=== PATIENT | female | born 1990 | race Caucasian/White ===

== ENCOUNTER 2016-07-09 08:03 | Inpatient (IN) | payer SELFPAY ==
[~2016-07-09] VITALS: Ht 170.2 cm; Wt 89.8 kg
[2016-07-09] VITALS (7 sets, daily range): BP systolic 109–138; BP diastolic 66–81; PULSE 72–98; RESP 12–20; O2SAT 94–98
--- NOTE | 2016-07-09 08:13 | ED.REPORT ---
HPI-General Illness Date of Service Jul 09, 2016 ED Provider: The patient is a 25 year old female with history of self cutting, anxiety, PTSD , former IV drug abuse, who was brought to the emergency department by her family member. The patient states she tried to commit suicide 2 days ago by injecting 12 grams of heroin. Over the last 24 hours she has developed upper and lower extremity pain/numbness, sores all over her entire body, numbness in her legs and feet, inability to move her hips or legs secondary to pain, and decreased appetite. The patient has been picking at the sores. She is not feeling suicidal at this time. She has never experienced similar symptoms after using heroin. Nursing Notes Stated Complaint: CANT FEEL LEGS Chief Complaint: General Complaint Nursing Notes Reviewed: Yes Allergies: Coded Allergies: No Known Allergies (Verified Allergy, Severe, 10/31/06) No Active Prescriptions or Reported Meds General Time Seen by MD: 08:13 Chief Complaint Multip medical complaints Hx Obtained From: Patient, Other family... Arrived By: Wheelchair Sudden in Onset?: Yes Onset Occurred: 1 day ago Symptom Duration: Since onset Location: : Arm left: Arm right: Back: Face: Hip left: Hip right: Leg left: Leg right Quality: Painful Severity: Current: Moderate Severity: Maximum: Severe Recent Healthcare: No recent doctor visit, No recent hospitalization Similar Sx Previous: No Past Medical History Past Medical History PTSD Anxiety Self cutting Hx of IV drug abuse Fibromyalgia Family History Noncontributory Social History Uses heroin Other Social History: Good social support, Local resident Ambulatory Status Independent Review of Systems Full Review of Systems GI: Reports: Anorexia Musculoskeletal: Reports: Extremity pain Skin: Reports Rash Neurologic: Reports: Focal weakness, Numbness, Problem walking Psychiatric: Denies: Suicidal ideation Complete sys rev & neg: except as marked. Physical Exam Vital Signs Vital Signs Date Time Temp Pulse Resp B/P Pulse Ox O2 Delivery O2 Flow Rate FiO2 07/09/16 09:57 77 20 122/80 98 Room Air 07/09/16 09:17 88 12 115/66 97 Room Air 07/09/16 08:07 37.2 98 20 138/81 96 Initial VS: Reviewed, Vital signs normal Head / Eyes: Normocephalic, PERRL ENT: Mucous membranes moist, Conjunctiva normal Neck: Supple, Non-tender, Full range of motion Respiratory: Breath sounds normal, Clear to auscultation, No respiratory distress Cardiovascular: Regular rate & rhythm, Heart sounds normal, Intact distal pulses Abdomen / GI: Soft, Non-tender, No guarding, No rebound, No distention General/Constitutional: Awake, Alert Distress / Hydration: Positive: Distress moderate Appearance / Presentation: Positive: Uncomfortable Lower Extremity / Pelvis / MS: Neurologic intact, Vascular intact Limited range of motion of knees and hips due to pain. Ankle / Foot: Neurologic intact, Vascular intact Intact sensory and motor function in her toes. Skin: Dry Rash / Lesion Notes: Multiple superficial excoriated ulcerations from her head to her feet (face,neck, chest, back, abdomen, upper and lower extremities). The sores are anywhere from 1 cm to 4 cm in size. Some with superimposed signs of infection. There is no fluctuance or induration. Multiple tattoos. Neurologic: Oriented X3, Speech NL Intact sensory and motor function in her toes. Interpretation & Diagnostics Lab Results Interpretation Result Diagram: 07/09/16 0833 07/09/16 0833 Test 07/09/16 08:33 07/09/16 09:50 White Blood Count 10.5th/mm3 (3.8-10.1) Red Blood Count 3.96mil/mm3 (3.90-5.20) Hemoglobin 12.5g/dL (12.0-15.6) Hematocrit 36.7% (35.0-46.0) Mean Corpuscular Volume 92.7fL (81-100) Mean Corpuscular Hemoglobin 31.6pg (27.0-35.0) Mean Corpuscular Hemoglobin Concent 34.1% (32.0-37.0) Red Cell Distribution Width 11.8% (12.3-15.4) Platelet Count 244bil/L (150-400) Neutrophils (%) (Auto) 83.4% (40-74) Lymphocytes (%) (Auto) 7.7% (14-46) Monocytes (%) (Auto) 7.4% (4-12) Eosinophils (%) (Auto) 0.8% (0-5) Basophils (%) (Auto) 0.3% (0-3) Erythrocyte Sedimentation Rate 57mm/hr (0-32) Sodium Level 138mEq/L (134-144) Potassium Level 3.5mEq/L (3.5-5.2) Chloride Level 97mEq/L (97-108) Carbon Dioxide Level 24mmol/L (18-29) Blood Urea Nitrogen 6mg/dL (6-20) Creatinine 0.70mg/dL (0.57-1.00) Estimat Glomerular Filtration Rate 145mL/min (>59) Glucose Level 98mg/dL (60-99) Lactic Acid Level 2.6mmol/L (0.4-2.0) Calcium Level 9.2mg/dL (8.5-10.1) Magnesium Level 2.0mg/dL (1.6-2.6) Total Bilirubin 0.6mg/dL (0.0-1.2) Aspartate Amino Transf (AST/SGOT) 65U/L (0-50) Alanine Aminotransferase (ALT/SGPT) 36U/L (0-32) Alkaline Phosphatase 69U/L (25-150) Total Creatine Kinase 868U/L (21-215) Troponin T 0.010ug/L (0.0-0.011) C-Reactive Protein 11.7mg/dL (0.0-0.5) Total Protein 8.3g/dL (6.4-8.4) Albumin 4.0g/dL (3.4-5.0) Procalcitonin 0.13ng/mL (0.00-0.08) Urine Color Straw (YELLOW) Urine Appearance Clear (CLEAR,HAZY) Urine pH 8.0 (5.0-8.0) Urine Specific [place] 1.005 (1.003-1.035) Urine Protein Negativemg/dL (NEG,TRACE) Urine Glucose (UA) Negativemg/dL (NEGATIVE) Urine Ketones Negativemg/dL (NEGATIVE) Urine Occult Blood Large (NEGATIVE) Urine Nitrite Negative (NEGATIVE) Urine Bilirubin Negative (NEGATIVE) Urine Urobilinogen Normalmg/dL (NORMAL) Urine Leukocyte Esterase Negative (NEGATIVE) Urine RBC 0-2/hpf (0-2) Urine WBC 0-5/hpf (0-5) Urine Epithelial Cells Few/hpf (NONE-MOD) Urine Crystals None seen (NONE SEEN) Urine Bacteria None/hpf (NONE-FEW) Urine Hyaline Casts None/lpf (NONE) Urine Granular Casts None seen (NONE SEEN) Urine Waxy Casts None seen (NONE SEEN) Urine Red Blood Cell Casts None seen (NONE SEEN) Urine White Blood Cell Casts None seen (NONE SEEN) Urine Mucus None seen (None Seen) Urine Trichomonas None seen (NONE SEEN) Urine Yeast None (NONE SEEN) Urinalysis Comment None Urine Culture Reflexed Not indicated ECG Interpretation Time: 08:38 Interpreted by: ED physician Normal ECG Interpretation: Normal ECG w/ rate of... (88), Normal rate, Normal sinus rhythm, No acute ischemic changes, Normal QRS, Normal axis, Normal intervals, Adequate tracing X-Ray Chest Interpretation Chest Xray Interpretation: IMPRESSION: No acute cardiopulmonary disease process. Dictated by: Radha Shafer MD, PhD on 07/09/2016 at 9:07 View: Portable, 1 view Interpretation / Wet Read by: Interpret - Radiologist Re-Eval/Medical Decision Med Decision/Clinical Course Concern for endocarditis due to IV drug abuse elevated sedimentation rate, lactic acid, CRP. Patient has obvious superficial impetigo. 3 blood cultures obtained, Rocephin and IV vancomycin ordered. It should be noted that after starting IV vancomycin, patient developed a numb feeling in her chest. This did not seem to correlate with any ectopy on the monitor, her EKG was unchanged. Overall it did not seem consistent with ischemic heart disease or acute coronary syndrome. Source of Hx: Old records, Family Time of Eval: 08:30 Re-Evaluation/Progress Note: Her mother reports that the patient was doing a drug called "ethyl" which you can buy online. She was snorting Adderall and has been doing heroin. Time of Eval: 09:40 Re-Evaluation/Progress Note: The patient admits to using ethylphenidate. Time of Eval: 09:50 Re-Evaluation/Progress Note: Discussed plan for admission with the patient and her mother. They understand and agree with plan. Consultation #1: Consulted With: extrusion utility worker Call Returned at: 09:45 Supervisory Clerk: Agrees with eval, Agrees with plan Note: Spoke with the ED social work nurse about the patient's case. Consultation #2: Referral / Consult Name: Tanya Roberts MD Consulted With: Hospitalist Requested Call at: 09:54 Call Returned at: 10:17 Supervisory Clerk: Will see patient, Agrees with eval, Agrees with plan, Accepts admit Counseled Regarding: Diagnosis, Lab results, Need for admission Discharge & Departure Departure Notes Ruleout endocarditis Primary Impression: Impetigo Additional Impression: IV drug abuse Disposition: ADMITTED TO HOSPITAL Discharge Condition All VS Reviewed: Yes Condition: Stable Referrals: Chitra De Anda MD (PCP) [employer] Attestation Portions of this note were transcribed by Taisha Rodriguez. I, Dr. Allen personally performed the history, physical exam and medical decision-making; I reviewed and confirmed the accuracy of the information in the transcribed note. Signed by: Chip Kirkpatrick, 07/08/2016 at 1025. copies to: Chitra De Anda MD, Timothy Presley LARA Jul 09, 2016 08:13 Taisha Rodriguez Jul 09, 2016 08:21
[2016-07-09] MEDS ORDERED: 0.9% Sodium Chloride 1,000 ML IV ONE ×2 (08:21→08:25)
[2016-07-09] MEDS ORDERED: Vancomycin Dose per Pharmacist XX ONE (08:30)
[2016-07-09 08:51] LABS: BASOPHILS % (AUTO) 0.3 % (0-3); EOSINOPHILS % (AUTO) 0.8 % (0-5); MONOCYTES % (AUTO) 7.4 % (4-12); Mean Corpuscular Hemoglobin 31.6 pg (27.0-35.0); Mean Corpuscular Volume 92.7 fL (81-100); NEUTROPHILS % (AUTO) 83.4 % (40-74); Platelet Count 244 bil/L (150-400)
[2016-07-09] MEDS ORDERED: Ondansetron 2 mg/mL 2 mL Inj ONE (08:59)
--- NOTE | 2016-07-09 09:09 | DRSVH ---
PROCEDURE: X-RAY CHEST ONE VIEW, PORTABLE ([id number]) INDICATIONS: weakness TECHNIQUE: One view of the chest was acquired. COMPARISON: [facility], , CHEST 1VW (PORTABLE), 10/31/2006, 13:03. FINDINGS: Surgical changes and devices: None. Lungs and pleura: No pleural effusions or pneumothorax. Lungs are clear. Mediastinum: Mediastinal contours appear normal. Heart size is normal. Bones and chest wall: No suspicious bony lesions. Overlying soft tissues appear unremarkable. IMPRESSION: No acute cardiopulmonary disease process. Dictated by: Radha Shafer MD, PhD on 07/09/2016 at 9:07 Approved by: Radha Shafer MD, PhD on 07/09/2016 at 9:08
[2016-07-09 09:18] LABS: ERYTHROCYTE SEDIMENTATION RATE 57 mm/hr (0-32)
[2016-07-09] MEDS ORDERED: cefTRIAXone Inj 2,000 MG in Dextrose 5% Minibag Plus 50 ML IV ONE (09:20)
[2016-07-09 09:29] LABS: TROPONIN T 0.01 ug/L (0.0-0.011)
[2016-07-09] MEDS ORDERED: Vancomycin Inj 1,500 MG in 0.9% Sodium Chloride 500 ML IV ONE (09:30)
[2016-07-09] MEDS ORDERED: Alum-Mag Hydrox-Simeth 30 mL Suspension PO PRN (10:30)
[2016-07-09] MEDS ORDERED: Ondansetron 2 mg/mL 2 mL Inj IVPUSH PRN (10:30)
[2016-07-09 10:55] LABS: APPEARANCE,URINE CLEAR (CLEAR,HAZY); COLOR,URINE STRAW (YELLOW); OCCULT BLOOD,URINE LARGE (NEGATIVE); UROBILINOGEN,URINE NORMAL (NORMAL)
[2016-07-09] MEDS: 0.9% Sodium Chloride 1,000 ML IV SCH (12:00)
--- NOTE | 2016-07-09 12:00 | NUR ---
Arrival to floor Pt arrived to floor from ED in bed with mother at bedside. Pt alert, oriented, on room air, IV fluids and IV antibiotics infusing. Pt transferred to room bed with 2 person assist. Belongings sent home with mother. Pt signed behavior contract with charge nurse, copy placed in chart. Pt has numerous scabs and open areas throughout body, less on the lower legs. Pt states "I have been out of it for four days, they just appeared, I haven't had them before". Clean dressings placed on areas that are weeping.
[2016-07-09] MEDS ORDERED: Influenza (Adult) Vaccine 0.5 mL Syringe IM ONE (16:05)
--- NOTE | 2016-07-09 16:06 | PCM.HPMED ---
Subjective Date of Service Jul 09, 2016 Primary Provider: Admitting Physician: Tanya Roberts MD Primary Care Physician: Nopcp Attending Physician: Tnaya Roberts MD Admit Status: From the Emergency Department Chief Complaint: Painful, multiple skin sores and suicidal drug overdose. History of Present Illness: This is a 25-year-old female with a long psychiatric history. Despite her history of multiple psychiatric hospitalizations she has been able to accomplish some impressive things in her life. 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 She is also attending a cosmetology school and has a final exam coming up soon. In the middle of this typical daily life she had an interaction with an ex friend who gave her 12 g of heroin and told her to go ahead and finally do it. This refers to her prior suicide gestures/attempts. She says she injected the full 12 g of heroin in stages and does not remember much in the succeeding days. This occurred about 3 -4 days ago. 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 In the last 3 days she has had intermittent memories of walking around, lying on the floor etc. She has apparently been living with her mother/parents who she does not have much regard for. She says several times that they are not very sophisticated and are unable to respond to medical emergencies and so neglected to have her evaluated until she asked them to call today. What prompted her to call for help finally was that the pressure ulcers on the low back were becoming quite painful. She is covered with rug burn/pressure ulcers/picking scars and open ulcers as result of her use of ethylphenidate and prolonged unresponsive spells lying on the carpet. Her CK level is elevated consistent with obvious rhabdomyolysis. No urine drug screen has been done yet. She says she had been saving some ethylphenidate that her friend had obtained over the Internet to use so she could concentrate when studying for her cosmetology test. She says her mother observed her using it subsequent to the heroin overdose, but she does not remember using it. Her face has the typical picking scars/open ulcers/scabs of methamphetamine use. These are also quite impressively scattered on her legs and arms. The face and the low back are really the most profoundly affected. At this point she denies being suicidal which seems reliable as she does not have that friend here challenging her to take a heroin overdose today, if she is to be believed. Her records describe a borderline personality disorder with a arpit adolescence, multiple hospitalizations for cutting and other suicidal gestures. She says her last hospitalization was at [facility] about 3 years ago. At that point she had a blood infection of MRSA and had to have biopsies done laparoscopically of her abdominal lymph nodes and left axillary lymph nodes.. 8 months ago she says she went to the ED because of "alcohol poisoning ". 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 She has fibromyalgia and follows up at the [facility]. She has a 5-year- old daughter and her living situation seems to be unstable. She drinks alcohol only "socially". She smokes a quarter pack a day of cigarettes and uses marijuana regularly. She denies the use of methamphetamines or other drugs. She used to be on Adderall XR for ADHD, apparently. She says her last HIV test several years ago was negative and she has no history of tuberculosis. Review of Systems: Positive for skin ulcers, low back pain, confusion, delirium, blackout. Negative for chest pain, fever, chills, sweats, coughing, nausea, vomiting, abdominal pain, dysuria, bleeding, seizures, headaches, joint pain, depression, new allergies. Allergies Coded Allergies: No Known Allergies (Verified Allergy, Severe, 10/31/06) Home Medications No regular home medicines. Last use of Adderall XR was "several months ago ". PMH PTSD Anxiety Self cutting Hx of IV drug abuse Fibromyalgia Surgical History Laparoscopic abdominal lymph node biopsy Left axillary lymph node biopsy Family History Noncontributory, reviewed today Social History Hx Alcohol Use: Yes (drinks "occasionally") Hx Substance Use: Yes (IV heroine, THC ) Hx Tobacco Use: Yes Smoking Status: Current Every Day Smoker (quarter pack) Living Arrangement: with Family Additional Information Works as a car dealership top inventory control executive, frequently from home by computer. Uses alcohol and cigarettes daily. Intermittently uses heroin Uses Ethylphenidate obtained online, this is an experimental compound. Has a 5-year-old daughter. Unclear where she has been this week. Exam Vital Signs Vital Sign - Last Date Time Temp Pulse Resp B/P Pulse Ox O2 Delivery O2 Flow Rate FiO2 07/09/16 12:40 72 07/09/16 12:04 37.1 18 119/69 94 Room Air Exam She is alert, oriented 3, in no apparent distress. She is fully aware of her surroundings without the sedation she originally had in the emergency department several hours ago. Her face is covered with large and small excoriations/ulcers/areas of impetigo yellowish scabbing. Several of these areas are bleeding. These are obviously self-induced/picking and some appear to have been friction sourced from lying on the carpet. Pupils are equally round and reactive to light and accommodation. Extraocular muscles are intact Sclera are pink and nonicteric Throat looks normal. No lymph nodes are felt head, neck, supraclavicular area. There is no thyromegaly. JVD is less than 6 cm. No carotid bruits are heard. Heart is regular rate and rhythm without murmur or extra sound. Lungs are clear to auscultation bilaterally. Abdomen is soft, bowel sounds are heard, nontender, no organomegaly. Extremities have no ankle edema. Neuro exam is notable for no tremor, cranial nerves II through XII tested intact , and motor function is 5 out of 5 throughout. Skin is notable for small excoriations/scabs typical for picking/rubbing on the upper legs and several on the arms. Remarkably the abdomen and lower legs seem to be spared. The face as noted above is most dramatically affected. There are shallow but quite wide/large pressure ulcers with serous drainage sticking to her bedding on the lumbar spine. Lab and Diagnostics Result Diagram: 07/09/16 0833 07/09/16 0833 X-Rays, CTs and MRIs X-RAY CHEST ONE VIEW, PORTABLE ([id number]) INDICATIONS: weakness TECHNIQUE: One view of the chest was acquired. COMPARISON: [facility], , CHEST 1VW (PORTABLE), 10/31/2006, 13:03. FINDINGS: Surgical changes and devices: None. Lungs and pleura: No pleural effusions or pneumothorax. Lungs are clear. Mediastinum: Mediastinal contours appear normal. Heart size is normal. Bones and chest wall: No suspicious bony lesions. Overlying soft tissues appear unremarkable. IMPRESSION: No acute cardiopulmonary disease process. Dictated by: aRdha Shafer MD, PhD Assessment & Plan Heroin Suicidal Overdose -- Social service evaluation and potential psychiatric evaluation before discharge. -- This sounds to be impulsive but consistent with her past history of labile moods and drug use. -- No signs of ongoing effect other than the residual skin infections. -- HIV test to be done, along with a urine drug screen ordered. Skin excoriations/Infected Picking Ulcers -- She will be on vancomycin and will likely be discharged without need for prolonged antibiotics in 2-3 days. Consider further evaluation for endocarditis , without current signs today -- Consider wound care consultation. Lumbar Pressure Ulcers -- This appears to be a direct result of prolonged immobilization on the carpet and will likely resolve over the next few weeks with normal resumption of alertness/shifts in body position during normal sleep. Rhabdomyolysis -- IV fluid normal saline 100 mL an hour until at least tomorrow. Recheck CPK tomorrow. History of Borderline Personality Disorder -- Consider psychiatric evaluation as inpatient or as outpatient follow-up. -- She discusses her friends and family in atypical borderline fashion of all good/all bad Tanya Driver MD, MD Jul 09, 2016 15:48
[2016-07-09] MEDS: Vancomycin Dose per Pharmacist XX SCH (16:55)
--- NOTE | 2016-07-09 19:02 | PCM.PHAPRO ---
Progress Date of Service: Jul 09, 2016 Requesting Provider: aTnya Roberts MD Painful, multiple skin sores and suicidal drug overdose. r/o endocarditis vanco dosing to obtain trough 15-20 dose vancomycin 1250mg IV q8h on a 23-09-11 schedule vanco trough 2/5 at 11am [place] Fregoso [facility] Jul 09, 2016 19:02
[2016-07-09] MEDS: Vancomycin Inj 1,250 MG in 0.9% Sodium Chloride 250 ML IV SCH (19:44)
[2016-07-09] MEDS: Mupirocin 2% 22 Gm Ointment TOPICAL SCH (20:30)
--- NOTE | 2016-07-09 23:37 | NUR ---
pain patient requests pain medication for lower back and left upper arm. rates pain 7. dressings to lower back are c/d/i. notified night resident of request. explained to patient. Addendum: 07/09/16 at 2343 by GT EASTMAN RN spoke to Dr Ordoñez. received order for morphine 4mg iv push q 4 hours prn pain. plan to administer and evaluate for optimal pain control Addendum: 07/10/16 at 0015 by GT EASTMAN RN right arm not left. patient medicated with morphine 4mg slow iv push. care ongoing.
[2016-07-10] MEDS: 0.9% Sodium Chloride 1,000 ML IV SCH ×3 (00:16→17:56)
[2016-07-10] MEDS: Mupirocin 2% 22 Gm Ointment TOPICAL SCH ×3 (00:16→20:25)
[2016-07-10] MEDS: Vancomycin Inj 1,250 MG in 0.9% Sodium Chloride 250 ML IV SCH ×3 (03:50→20:25)
[2016-07-10 04:55] VITALS: BP 114/70; PULSE 68; RESP 20; O2SAT 98
[2016-07-10 05:51] LABS: BASOPHILS % (AUTO) 0.4 % (0-3); EOSINOPHILS % (AUTO) 3.4 % (0-5); MONOCYTES % (AUTO) 11.4 % (4-12); Mean Corpuscular Hemoglobin 31.7 pg (27.0-35.0); Mean Corpuscular Volume 93.7 fL (81-100); NEUTROPHILS % (AUTO) 61.4 % (40-74); Platelet Count 217 bil/L (150-400)
--- NOTE | 2016-07-10 06:30 | NUR ---
pain patient crying. upset. states "nothing you are doing is helping me." rates pain to her hip, arm and back as a 10. notified crossmsver resident. awaiting a call back. attempted to give emotional support. patient not receptive at this time care ongoing. Addendum: 07/10/16 at 0702 by GT EASTMAN RN patient resting now. not crying, care ongoing.
[2016-07-10] MEDS: Vancomycin Dose per Pharmacist XX SCH (08:30)
--- NOTE | 2016-07-10 08:44 | NUR ---
Social Work: Screening Data: Pt is a 25 y/o female admitted for impetigo, IVDA r/o endocarditis. Pt's PCP is not listed, pt's is self pay insurance. Readmit score is 3. EMR reviewed, pt has IV drug hx including heroin use. INTERNAL COMMUNICATIONS MANAGER will conduct CD assessment. Assessment: Pt who is independent at baseline. IV drug use. Plan: Pt will d/c home via POV when medically stable. INTERNAL COMMUNICATIONS MANAGER will conduct CD assessment. APOORVA Purvis
[2016-07-10] MEDS: Ketorolac 15 mg/mL Inj IVPUSH SCH ×3 (09:00→20:24)
--- NOTE | 2016-07-10 09:07 | PCM.PNMED ---
Subjective Date of Service Jul 10, 2016 Subjective She complained last night about pain so was started on IV Morphine. She says it doesn't touch the pain. The pain is on the back pressure ulcers and also on both inner/upper thighs, there constantly but worse when standing. She says she fell several times after the Heroin overdose. Yesterday she was unable to localize the pain like this. Clearly some of this is opiate withdrawal pain. Her UDS is positive for opiates and THC. Exam Vital Signs Vital Sign - Last Date Time Temp Pulse Resp B/P Pulse Ox O2 Delivery O2 Flow Rate FiO2 07/10/16 04:55 36.8 68 20 114/70 98 Room Air Intake and Output 07/09/16 07/09/16 07/10/16 Cumulative From/Thru 15:00 23:00 07:00 07/09/16 08:07 - 07/10/16 06:21 Intake Total 750 ml 2025 ml 1850 ml 4625 ml Output Total 500 ml 800 ml 1100 ml 2400 ml Balance 250 ml 1225 ml 750 ml 2225 ml Intake Oral 1036 ml 300 ml 1336 ml IV Total 750 ml 989 ml 1550 ml 3289 ml Output Urine Total 500 ml 800 ml 1100 ml 2400 ml # Voids 1 1 # Bowel Movements 0 0 0 Exam Alert, oriented 3, states she is in severe distress from pain. Her over-the- top complaints of pain are typical for opiate withdrawal. Heart is regular rate and rhythm without murmur Lungs are clear to auscultation bilaterally Extremities have no ankle edema or thigh/hip tenderness. Range of motion of the hips appears to be normal. The rash on the face is improving without the bleeding edges, now with mainly scabs forming. It still quite an impressive meth appearing rash. The area on the low back is also drying up and healing as expected now that she has not immobilized. IVs and Medications Medications Reviewed: Medications were reviewed in detail Lab and Diagnostics Result Diagram: 07/10/1652907/10/16529 X-Rays, CTs and MRIs X-RAY CHEST ONE VIEW, PORTABLE ([id number]) INDICATIONS: weakness TECHNIQUE: One view of the chest was acquired. COMPARISON: [facility], , CHEST 1VW (PORTABLE), 10/31/2006, 13:03. FINDINGS: Surgical changes and devices: None. Lungs and pleura: No pleural effusions or pneumothorax. Lungs are clear. Mediastinum: Mediastinal contours appear normal. Heart size is normal. Bones and chest wall: No suspicious bony lesions. Overlying soft tissues appear unremarkable. IMPRESSION: No acute cardiopulmonary disease process. Dictated by: Radha Shafer MD, PhD Assessment & Plan Heroin Suicidal Overdose -- Social service evaluation and potential psychiatric evaluation before discharge. -- This sounds to be impulsive but consistent with her past history of labile moods and drug use. -- No signs of ongoing effect other than the residual skin infections. -- HIV test to be done -- Urine drug screen positive for THC and opiates. Skin excoriations/Infected Picking Ulcers -- She will be on vancomycin, mupirocin ointment and will likely be discharged without need for prolonged antibiotics in 2-3 days. Consider further evaluation for endocarditis, without current signs today -- Consider wound care consultation, likely not necessary as she is healing with simply being alert and moving around normally, and avoiding the use of the synthetic ethylphenidate Lumbar Pressure Ulcers -- This appears to be a direct result of prolonged immobilization on the carpet , is improved today and will likely resolve over the next few weeks with normal resumption of alertness/shifts in body position during normal sleep. Rhabdomyolysis -- IV fluid normal saline 100 mL an hour until at least tomorrow. Recheck CPK tomorrow. -- CK has dropped to 371. History of Borderline Personality Disorder -- Consider psychiatric evaluation as inpatient or as outpatient follow-up. -- She discusses her friends and family in the typical borderline fashion of all good/all bad Diffuse Body Aches/Bilateral Hip Pain -- This appears to be an opiate withdrawal phenomenon. -- The C-reactive protein is elevated, not unexpectedly, so will be repeated -- Discussed imaging options with radiology who recommends beginning with a hip x-ray and if negative, and pain persisting, then proceed with pre-and post contrast bilateral hip MRI to rule out soft tissue/muscle abscess. -- Begin Toradol for a 48 hour defined treatment regimen. Mychal Roberts MD Pain Evaluation: Pain not Controlled VTE Prophylaxis: Sub-Q Enoxaparin Resuscitation Status: CPR: Attempt Resuscitation Tanya Roberts MD Jul 10, 2016 08:26
--- NOTE | 2016-07-10 10:55 | NUR ---
Off unit Pt off unit to XR. Addendum: 07/10/16 at 1125 by ADRIANA TUCKER RN Pt back on unit at 1115
[2016-07-10] MEDS ORDERED: Vancomycin Serum Trough XX ONE ×2 (11:00→19:00)
--- NOTE | 2016-07-10 11:22 | DRSVH ---
PROCEDURE: X-RAY PELVIS WITH BILATERAL HIPS, 3 VIEWS INDICATIONS: 25 year-old female with bilateral hip pain, worse on the left. TECHNIQUE: AP pelvis with lateral view(s) of the right and left hip(s). COMPARISON: None. FINDINGS: Bones: No fractures or dislocations. Pelvic ring appears intact. No bony erosions or joint narrowi ng. No suspicious bony lesions. Soft tissues: The visualized bowel gas pattern is normal. No suspicious soft tissue calcifications. IMPRESSION: No radiographic explanation for hip pain. If there is persistent clinical concern for ost eomyelitis or hip joint region abscesses, consider pre- and postcontrast hip MRI for further evaluati on. Dictated by: Shreyas Grier M.D. on 07/10/2016 at 11:19 Approved by: Shreyas Grier M.D. on 07/10/2016 at 11:21
--- NOTE | 2016-07-10 12:00 | NUR ---
Chemical dependency assessment Soraida Colmenares 07/10/16 Reason for referral: Pt has a history of IVDA with recent relapse and intentional overdose attempt resulting in 2-3 days of limited recall of events and subsequent medical complications. History of substance use: Pt reports polysubstance use but primarily heroin use for many years. Most recent use was 2-3 days prior to arrival after reportedly having 1 year clean time. History of withdrawal symptoms: Pt reports that when she was using daily she typically experienced severe tremors when in withdrawal but no other associated symptoms. History of treatment: Pt reports multiple attempts at inpatient treatment, most recently in 2014 at [facility]. Pt reports that she goes to CA meetings in [place] weekly and plans to attend Tuesday 07/11 if released. Pt dismisses any reference to outpatient chemical dependency treatment immediately with the implication that they are ineffective. Pt reports hearing of suboxone but that it has never been offered to her, however she is interested if available. Family history: Pt reports that the majority of her family struggle with addiction and when asked to clarify she states, "All of them", "everything". History of sobriety and supports: Pt reports most recently to have had 1 year clean time prior to overdose. Pt reports her only support was her job and her fiance, whom she says recently broke up with her within the last month. Pt reports that her CA groups were effective for her as well and she plans to return to them. Patient's perceptions into the consequences of her use: Pt reports that this was a relapse and that she has been clean for 1 year, but does acknowledge a desire not to return to using and is accepting of any services to be offered. Pt when referencing her previous use however states "Just because it was using doesn't mean I'm stupid, I was a functional addict, I worked at [employer]". Suicide risk: Pt's admission directly relates to a suicide attempt which happened 2-3 days prior to arrival. Throughout her ED visit and subsequent medical care on the floor she has denied to all providers that she no longer feels suicidal and again today states that she is not suicidal, stating that she needs to get back to work and that she would not kill herself due to her daughter. Pt does elaborate that her primary depression was secondary to a recent unexpected breakup with her fiance which occurred 1 month ago, however as stated in Dr. Roberts's documentation, her attempt appears more impulsive than premeditated. Pt does not appear to be imminently dangerous or in need of inpatient psychiatric treatment, however would certainly benefit and is agreeable to outpatient treatment. Motivation/disposition: Pt is hospitalized for medical care stemming from a recent overdose attempt, which pt relates was her first use in about 1 year. Pt denies any cravings or desire to still use. Pt also denies any current suicidal ideations, plans or intent to attempt to harm herself while in the hospital or at discharge. Pt is interested and willing to pursue suboxone treatment at discharge, however in terms of chemical dependency that appears to be the extent of her desired treatment. RAILROAD YARD WORKER discussed local options and plan to provide information for referrals prior to discharge as pt will need to self refer to local suboxone treatment through [facility]. RAILROAD YARD WORKER discussed with pt outpatient mental health care, which she is agreeable to, however is quite negative stating that "nobody is taking patients". RAILROAD YARD WORKER attempted to reframe this, as certainly psychiatry is difficult to obtain quickly on an outpatient basis [facility], counseling should not take more and 2-3 weeks. Pt was not convinced by this but never the less was interested in referrals for care at discharge. Pt is unsure of her insurance presently and is listed as private pay. Pt believes she may have [facility] [employer] but she does not have information to confirm. RAILROAD YARD WORKER will attempt to confirm insurance prior to referrals, however if none are readily available, RAILROAD YARD WORKER will refer pt to [facility] as well as [facility] for sliding scale primary care and outpatient behavioral health at discharge. Pt does not appear to be imminently dangerous to herself secondary to a mental illness and does not appear require inpatient psychiatric treatment. APOORVA Wheatley
[2016-07-10 13:40] VITALS: BP 101/64; PULSE 71; RESP 18; O2SAT 99
--- NOTE | 2016-07-10 19:26 | NUR ---
Skin/activity/pain Pt with multiple open areas over entirety of body, many weeping. Drsg placed on coccyx for open/sheared area. Pt on contact precautions for + MRSA. She has been transfering to with SBA, tolerating activity well. PRN MS given for pain with effective results. One c/o nausea, PRN antiemetic given. Pt reported no BM x7 days, PRN stool softener given. Currently resting comfortably in bed which is in the lowest, locked position and call light in reach.
--- NOTE | 2016-07-10 20:43 | PCM.PHAPRO ---
Progress Requesting Provider: Tanya Roberts MD Painful, multiple skin sores and suicidal drug overdose. r/o endocarditis Vancomycin trough is 10.8 prior to the 5th total dose (1500mg load then 1250mg IV q 8 hrs). Will increase Vancomycin to 1500mg IV q 8 hours to better meet goal trough of 15-20 until endocarditis is ruled out. Nex trough 1100 07/12/16. Bethanie Velasquez [facility] Jul 10, 2016 20:43
[2016-07-10 21:49] VITALS: BP 106/60; PULSE 76; RESP 18; O2SAT 99
[2016-07-11 01:40] VITALS: BP 100/62; PULSE 70; RESP 18; O2SAT 99
[2016-07-11] MEDS: Ketorolac 15 mg/mL Inj IVPUSH SCH ×4 (01:54→20:28)
[2016-07-11] MEDS: Vancomycin Inj 1,500 MG in 0.9% Sodium Chloride 500 ML IV SCH ×3 (04:27→20:29)
--- NOTE | 2016-07-11 05:16 | NUR ---
Pain / Compliance Pt has been c/o pain 12/12 and requesting pain meds often. Otherwise pt has been very compliant and responding appropriately and nicely.
[2016-07-11] MEDS: 0.9% Sodium Chloride 1,000 ML IV SCH ×3 (06:45→20:29)
[2016-07-11 06:48] VITALS: BP 115/68; PULSE 68; RESP 18; O2SAT 98
[2016-07-11 07:59] LABS: BASOPHILS % (AUTO) 0.2 % (0-3); EOSINOPHILS % (AUTO) 3.7 % (0-5); MONOCYTES % (AUTO) 8.8 % (4-12); Mean Corpuscular Volume 94.4 fL (81-100); NEUTROPHILS % (AUTO) 60.1 % (40-74); Platelet Count 222 bil/L (150-400)
[2016-07-11] MEDS: Vancomycin Dose per Pharmacist XX SCH (08:30)
[2016-07-11] MEDS: Polyethylene Glycol (PEG) 17 Gm Powder PO PRN (08:53)
[2016-07-11] MEDS: Mupirocin 2% 22 Gm Ointment TOPICAL SCH ×2 (08:53→20:29)
[2016-07-11 09:45] VITALS: BP 106/58; PULSE 73; RESP 18; O2SAT 98
[2016-07-11 15:24] VITALS: BP 101/58; PULSE 63; RESP 19; O2SAT 97
--- NOTE | 2016-07-11 15:25 | NUR ---
Social Work-continued d/c planning: Data& assessment:EMR Reviewed. SW attempted to follow up with pt today and discuss how she is doing today and follow up. Pt states she is unwilling to speak with SW and asked SW to leave the room stating she will not speak with SW. SW called MD who states that he would like psychiatry to see pt and he will call psych to come and see pt. SW will defer decision making to psychiatry. SW will continue to follow. Plan:MD to order psych consult to see pt, defer decision making to psychiatry. Pt unwilling to speak with SW at this time. SW will continue to follow. APOORVA Reddy
--- NOTE | 2016-07-11 15:58 | NUR ---
Wound Evaluation order received, pt seen at bedside. 25 yo female admitted with ulcerations of her back and buttocks secondary to being down at home after using drugs. She presents with multiple superficial (stage 2 pressure ulcers) at her sacrum and left and right buttocks and hips. The largest of these is a 8 cm L x 4 cm W x 0.1 cm D at her sacrum, the ulcer is clean and granular without undermining or tunneling. the 2 ulcers at her buttocks are 2 cm in diameter and superficial with granular tissue and n undermining or tunneling. All ulcers were covered with mepilex adhesive foam dressings which can be changed PRN by nursing. These should resolve quickly. Will follow up as needed.
[2016-07-11 17:41] VITALS: BP 111/71; PULSE 66; RESP 19; O2SAT 98
--- NOTE | 2016-07-11 18:32 | NUR ---
R Arm discomfrt Pt requested an assessment of R lateral arm directly above the bend of the arm. This RN was directed to a firm, ropey, painful area. No swelling, redness or heat was noted. paged, call back occurred. MD called back, coming to unit to access. Pt has been made aware, will continue to monitor.
--- NOTE | 2016-07-11 19:28 | PCM.PNMED ---
Subjective Date of Service Jul 11, 2016 Subjective Patient is very upset that everyone keeps asking her about her feelings and what happened. Patient states that she tried to kill herself by taking heroin, she states that she just wants to go home. Pt reports that it is no one's business if she kills herself.Patient reports that she is having suicidal ideations, but does not currently have a plan. Pt states that she is having constipation. Pt denies any fevers, chills, nausea or vomiting. Pt reports that her pain is not well controlled with the morphine because she is a former addict , and has a high tolerance. Exam Vital Signs Vital Sign - Last Date Time Temp Pulse Resp B/P Pulse Ox O2 Delivery O2 Flow Rate FiO2 07/11/16 17:41 36.6 66 19 111/71 98 Room Air Intake and Output 07/10/16 07/10/16 07/11/16 Cumulative From/Thru 15:00 23:00 07:00 07/09/16 08:07 - 07/11/16 06:47 Intake Total 2894 ml 1614 ml 9133 ml Output Total 800 ml 3200 ml Balance 2094 ml 1614 ml 5933 ml Intake Oral 1396 ml 2732 ml IV Total 1498 ml 1614 ml 6401 ml Output Urine Total 800 ml 3200 ml # Voids 1 2 # Bowel Movements 0 Exam General: Agitated and uncomfortable. HEENT: Normocephalic, atraumatic. External ears without defect. Pupils equal, round, and reactive to light and accommodation. Neck: Supple with full range of motion. Cardiovascular: Regular rate and rhythm with no murmurs, rubs, or gallops appreciated Pulmonary: Clear to auscultation bilaterally with no crackles, wheezes, or rhonchi. Normal respiratory effort with no use of accessory muscles. Abdomen: Bowel tones present. Soft, nontender, nondistended. Extremities: No clubbing, cyanosis, edema appreciated. Skin: Numerous tattoos covering body. Numerous wounds in various states of healing on extremities and face. Patient also has wounds on buttocks, currently covered with dressings. Psychiatric: Agitated and labile mood. Alert and oriented to person, place, and time. IVs and Medications Medications Reviewed: Medications were reviewed in detail Lab and Diagnostics Result Diagram: 2/6/17 0603 2/6/17 0603 Microbiology Microbiology VARUN CULTURE BLOOD Preliminary 07/11/16-0632 Organism 1 POSITIVE BLOOD CULTURE GRAM STAIN RESULT GRAM POSITIVE COCCI ?STAPH BC BOTTLE Isolated from Aerobic Bottle of Set Drawn DATE CALLED: 07/10/16 TIME CALLED: 1057 CALLED BY: FLAVIA FLOOR/DOCTOR: TRINH/ADRIANA VEE READ BACK YES TYPE OF DRAW PERIPHERAL DRAW TIME OF POSITIVITY 1043 STAPH SPECIES, PROBABLE STAPH AUREUS ID AND SENS PENDING ISOLATED FROM ONE OF SIX BOTTLES COLLECTED 07/09 X-Rays, CTs and MRIs X-RAY CHEST ONE VIEW, PORTABLE ([id number]) INDICATIONS: weakness TECHNIQUE: One view of the chest was acquired. COMPARISON: [facility], , CHEST 1VW (PORTABLE), 10/31/2006, 13:03. FINDINGS: Surgical changes and devices: None. Lungs and pleura: No pleural effusions or pneumothorax. Lungs are clear. Mediastinum: Mediastinal contours appear normal. Heart size is normal. Bones and chest wall: No suspicious bony lesions. Overlying soft tissues appear unremarkable. IMPRESSION: No acute cardiopulmonary disease process. Dictated by: Radha Shafer MD, PhD Assessment & Plan Acute heroin overdose suspected to be intentional, present on admission -patient services specialist attempted to speak with the patient, but she refused to speak with them. -Psychiatry consulted and will see the patient for evaluation of her suicidal ideations -HIV test negative -Urine drug screen positive for THC and opiates. Multiple skin wounds, present on admission, ongoing -Continue vancomycin, mupirocin ointment -Wound care consultation Lumbar Pressure Ulcers -Wound consultation -Continue to monitor -Will likely require outpatient follow up Acute suspected rhabdomyolysis secondary to prolonged time down following overdose, present on admission, improving -IV fluid normal saline 100 mL an hour -CK trending down -Continue to monitor Diffuse myalgia likely secondary to opiate withdrawal, present on admission, ongoing -Imaging has not demonstrated any cause of the pain, it is likely due to withdrawal symptoms -If there is worsening symptoms, will consider further imaging. -Continue Toradol and morphine. No additional medication to be started for pain VTE Prophylaxis: Sub-Q Enoxaparin Resuscitation Status: CPR: Attempt Resuscitation Time spent 30 minutes Attending Statement I have seen and evaluated patient at bedside in addition to directly supervising care provided by resident physician. I agree with above documentation. Appreciating psychiatry consultation, anticipating DC in AM if condition stable. Katrin Richards DO Jul 11, 2016 19:28 Rupert Colmenares DO Jul 11, 2016 22:29
[2016-07-11 21:06] VITALS: BP 114/70; PULSE 61; RESP 19; O2SAT 97
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
[2016-07-12] MEDS: Ketorolac 15 mg/mL Inj IVPUSH SCH ×2 (03:41→10:00)
[2016-07-12] MEDS: Vancomycin Inj 1,500 MG in 0.9% Sodium Chloride 500 ML IV SCH (03:49)
--- NOTE | 2016-07-12 06:30 | NUR ---
Pain Pt complained of pain 7/10 during the night. Administered Morphine 4mg x2. Pt resting in bed with eyes closed. No s/sx of pain or discomfort at this time. Will continue to monitor.
[2016-07-12] MEDS: 0.9% Sodium Chloride 1,000 ML IV SCH (07:16)
[2016-07-12 07:37] LABS: BASOPHILS % (AUTO) 0.2 % (0-3); EOSINOPHILS % (AUTO) 3.1 % (0-5); Mean Corpuscular Hemoglobin 31.2 pg (27.0-35.0); Mean Corpuscular Volume 93.4 fL (81-100); NEUTROPHILS % (AUTO) 64.9 % (40-74); Platelet Count 229 bil/L (150-400)
[2016-07-12] MEDS: Vancomycin Dose per Pharmacist XX SCH (08:30)
[2016-07-12] MEDS: Polyethylene Glycol (PEG) 17 Gm Powder PO PRN (09:03)
--- NOTE | 2016-07-12 09:05 | NUR ---
Arranged [facility] appointment for 07/15/16 with 1530 check in with Updated POOL NURSE
[2016-07-12] MEDS: Mupirocin 2% 22 Gm Ointment TOPICAL SCH (09:08)
[2016-07-12 09:32] VITALS: BP 136/76; PULSE 69; RESP 18; O2SAT 74
[2016-07-12] MEDS ORDERED: Trimethoprim-Sulfa 160 mg-800 mg Tablet PO SCH (10:14)
--- NOTE | 2016-07-12 10:19 | PCM.PHAPRO ---
Progress Painful, multiple skin sores and suicidal drug overdose. r/o endocarditis VANCOMYCIN DOSING PER PHARMACY Cultures report MSSA (panel sensitive). Vancomycin discontinued with Bactrim DS PO bid initiated. Justino Summers, PharmD Justino Summers Jul 12, 2016 10:19
--- NOTE | 2016-07-12 10:23 | DRSVH ---
PROCEDURE: US VENOUS ARM DUPLEX UNILATERAL, RIGHT INDICATIONS: 25 year-old with right upper extremity swelling, concern for abscess. TECHNIQUE: Real-time imaging, as well as color and pulse Doppler interrogation, was performed of the right upper extremity deep veins from the inferior neck to the antecubital fossa. COMPARISON: None. FINDINGS: There is a small filling defect at the drug injection site in an antecubital vein, suspici ous for small intraluminal thrombus. There is soft tissue swelling in the antecubital fossa. No drain able fluid. The internal jugular vein, visualized portions of the subclavian vein, axillary, and brachial veins a re free of intraluminal thrombus. Where physically possible, the veins are normally compressible. C olor and pulse Doppler demonstrate normal intraluminal flow, with expected phasicity and pulsatility. Additional scanning of the cephalic and basilic veins of the superficial system demonstrate normal compressibility, without thrombus. IMPRESSION: 1. There is soft tissue swelling in the antecubital fossa. No drainable fluid collection to suggest a bscess. 2. No deep venous thrombosis in the right upper extremity. 3. Filling defect in a superficial cephalic vein in the antecubital fossa at the drug injection site, consistent with superficial thrombophlebitis. Dictated by: Bulmaro Holman M.D. on 07/12/2016 at 10:14 Approved by: Bulmaro Holman M.D. on 07/12/2016 at 10:22
[2016-07-12] MEDS ORDERED: SULF1TAB35 PO (10:41)
[2016-07-12] MEDS ORDERED: MUPI22OI2 TOPICAL (10:41)
[2016-07-12] MEDS ORDERED: FLUO10CA20 PO (10:41)
--- NOTE | 2016-07-12 10:42 | PCM.DIMED ---
Katrin Richards DO 07/12/16 1039: Discharge Instructions Date of Service Jul 12, 2016 Dates of Hospitalization Jul 09, 2016 at 10:16 Discharge Diagnosis Discharge Diagnosis Acute heroin overdose Multiple skin wounds Lumbar Pressure Ulcers Acute suspected rhabdomyolysis Diffuse myalgia likely secondary to opiate withdrawal Medication Instructions We are discharging you home with 2 new medications We are sending you home with a course of antibiotics, which you will need to take for 7 days. We are also sending you home with the fluoxetine started by the psychiatrist. Please take this medication every day Diet No restrictions Activity No restrictions Call your provider Fever or Chills, Shortness of breath, Bleeding, Chest pain, Vomitting, Excessive diarrhea, Weakness (unilateral), Other (redness, warmth of wounds, purulent discharge.) Patient Instructions We are sending you home with a 7 day course of antibiotics, please take the entire course. We are also discharging you home with fluoxetine which was prescribed by the psychiatrist, please take this medication daily. You have an appointment at [facility] with Dr. Barnett on July 15 at 3:30 PM If you have any thoughts of harming yourself, please call 911 or go directly to the ER. Follow-up Provider: Olinda Barnett MD Follow-up with PCP in: Other (07/15/16) Ruperto Young MD 07/13/16 1034: Katrin Richards DO Jul 12, 2016 10:39 Ruperto Young MD Jul 13, 2016 10:34
[2016-07-12] MEDS ORDERED: Vancomycin Serum Trough XX ONE (11:00)
--- NOTE | 2016-07-12 12:06 | NUR ---
Discharge Patient discharge to home with all belongings. Explained to patient new medications (fluoxetine, mupirocin, and sulfamethoxazole/trimeth), when next medications are due and discharge instructions. Patient verbalized understanding. Dc'd IV intact. vitals stable. Patient left floor on her own two feet accompanied by mom with no signs of distress.
--- NOTE | 2016-07-12 13:59 | NUR ---
Social Work-discharge: Data:EMR Reviewed. Pt is on ay 3 of hospitalization for impetigo per H&P. Pt is medically stable for discharge home today. Psychiatry came and saw pt and have cleared pt for home. Psychiatry has started pt on new medications and would like NAOMI to assist in outpt follow up for clinics. NAOMI spoke with hospitalist who has cleared pt for discharge and MD states pt is denying any self harm. NAMOI arranged PCP appointment for pt at [facility] for Saturday 07/15 at 3:[address] Barnett. NAOMI provided pt with PCP appointment information, CD resources and Mental Health resources. Pt's mother to provide transport home today. All updated and agreeable to plan. Assessment:Pt who is independent at baseline. Plan:Pt to discharge home today via POV. Psychiatry has cleared pt for home. NAOMI provided pt with PCP appointment information, CD resources and Mental Health resources. Pt's mother to provide transport home today. All updated and agreeable to plan. APOORVA Reddy
--- NOTE | 2016-07-12 17:59 | PCM.DC.MED ---
Discharge Summary Date of Service Jul 12, 2016 Dates of Hospitalization Date of Hospital Admission Jul 09, 2016 at 10:16 Date of Discharge: Jul 12, 2016 Providers: Admitting Physician: Tanya oRberts MD Primary Care Physician: Nopmiguel Attending Physician: Tanya Roberts MD Diagnosis at Time of Discharge Diagnosis at Time of Discharge Acute heroin overdose Multiple skin wounds Lumbar Pressure Ulcers Acute suspected rhabdomyolysis Diffuse myalgia likely secondary to opiate withdrawal Consultations Psychiatry Wound Care Procedures XRay, CTs & MRIs X-RAY CHEST ONE VIEW, PORTABLE ([id number]) INDICATIONS: weakness TECHNIQUE: One view of the chest was acquired. COMPARISON: [facility], , CHEST 1VW (PORTABLE), 10/31/2006, 13:03. FINDINGS: Surgical changes and devices: None. Lungs and pleura: No pleural effusions or pneumothorax. Lungs are clear. Mediastinum: Mediastinal contours appear normal. Heart size is normal. Bones and chest wall: No suspicious bony lesions. Overlying soft tissues appear unremarkable. IMPRESSION: No acute cardiopulmonary disease process. Dictated by: Radha Shafer MD, PhD Other Diagnostics PROCEDURE: X-RAY PELVIS WITH BILATERAL HIPS, 3 VIEWS INDICATIONS: 25 year-old female with bilateral hip pain, worse on the left. TECHNIQUE: AP pelvis with lateral view(s) of the right and left hip(s). COMPARISON: None. FINDINGS: Bones: No fractures or dislocations. Pelvic ring appears intact. No bony erosions or joint narrowing. No suspicious bony lesions. Soft tissues: The visualized bowel gas pattern is normal. No suspicious soft tissue calcifications. IMPRESSION: No radiographic explanation for hip pain. If there is persistent clinical concern for osteomyelitis or hip joint region abscesses, consider pre- and postcontrast hip MRI for further evaluation. Dictated by: Shreyas Grier M.D. on 07/10/2016 at 11:19 Approved by: Shreyas Grier M.D. on 07/10/2016 at 11:21 PROCEDURE: US VENOUS ARM DUPLEX UNILATERAL, RIGHT INDICATIONS: 25 year-old with right upper extremity swelling, concern for abscess. TECHNIQUE: Real-time imaging, as well as color and pulse Doppler interrogation, was performed of the right upper extremity deep veins from the inferior neck to the antecubital fossa. COMPARISON: None. FINDINGS: There is a small filling defect at the drug injection site in an antecubital vein, suspicious for small intraluminal thrombus. There is soft tissue swelling in the antecubital fossa. No drainable fluid. The internal jugular vein, visualized portions of the subclavian vein, axillary , and brachial veins are free of intraluminal thrombus. Where physically possible, the veins are normally compressible. Color and pulse Doppler demonstrate normal intraluminal flow, with expected phasicity and pulsatility. Additional scanning of the cephalic and basilic veins of the superficial system demonstrate normal compressibility, without thrombus. IMPRESSION: 1. There is soft tissue swelling in the antecubital fossa. No drainable fluid collection to suggest abscess. 2. No deep venous thrombosis in the right upper extremity. 3. Filling defect in a superficial cephalic vein in the antecubital fossa at the drug injection site, consistent with superficial thrombophlebitis. Dictated by: Bulmaro Holman M.D. on 07/12/2016 at 10:14 Approved by: Bulmaro Holman M.D. on 07/12/2016 at 10:[address] Hogue history and physical from 07/09/16 "This is a 25-year-old female with a long psychiatric history. Despite her history of multiple psychiatric hospitalizations she has been able to accomplish some impressive things in her life. 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 She is also attending a cosmetology school and has a final exam coming up soon. In the middle of this typical daily life she had an interaction with an ex friend who gave her 12 g of heroin and told her to go ahead and finally do it. This refers to her prior suicide gestures/attempts. She says she injected the full 12 g of heroin in stages and does not remember much in the succeeding days. This occurred about 3 -4 days ago. 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 In the last 3 days she has had intermittent memories of walking around, lying on the floor etc. She has apparently been living with her mother/parents who she does not have much regard for. She says several times that they are not very sophisticated and are unable to respond to medical emergencies and so neglected to have her evaluated until she asked them to call today. What prompted her to call for help finally was that the pressure ulcers on the low back were becoming quite painful. She is covered with rug burn/pressure ulcers/picking scars and open ulcers as result of her use of ethylphenidate and prolonged unresponsive spells lying on the carpet. Her CK level is elevated consistent with obvious rhabdomyolysis. No urine drug screen has been done yet. She says she had been saving some ethylphenidate that her friend had obtained over the Internet to use so she could concentrate when studying for her cosmetology test. She says her mother observed her using it subsequent to the heroin overdose, but she does not remember using it. Her face has the typical picking scars/open ulcers/scabs of methamphetamine use. These are also quite impressively scattered on her legs and arms. The face and the low back are really the most profoundly affected. At this point she denies being suicidal which seems reliable as she does not have that friend here challenging her to take a heroin overdose today, if she is to be believed. Her records describe a borderline personality disorder with a arpit adolescence, multiple hospitalizations for cutting and other suicidal gestures. She says her last hospitalization was at [facility] about 3 years ago. At that point she had a blood infection of MRSA and had to have biopsies done laparoscopically of her abdominal lymph nodes and left axillary lymph nodes.. 8 months ago she says she went to the ED because of "alcohol poisoning ". 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 She has fibromyalgia and follows up at the [place] [facility]. She has a 5-year- old daughter and her living situation seems to be unstable. She drinks alcohol only "socially". She smokes a quarter pack a day of cigarettes and uses marijuana regularly. She denies the use of methamphetamines or other drugs. She used to be on Adderall XR for ADHD, apparently. She says her last HIV test several years ago was negative and she has no history of tuberculosis." Hospital Course Acute heroin overdose suspected to be intentional, present on admission -consumer services consultant attempted to speak with the patient, but she refused to speak with them. -HIV test negative -Urine drug screen positive for THC and opiates. -Psychiatry consulted and started the patient on fluoxetine. -At the time of discharge patient was denying any suicidal ideations -Patient agreed to follow-up in outpatient setting, [facility] Multiple skin wounds, present on admission, ongoing -Patient treated with vancomycin, mupirocin ointment during hospitalization -Discharged home on 7 day course of Bactrim Lumbar Pressure Ulcers -Wound consultation -Recommend outpatient follow-up to ensure healing is occurring Acute suspected rhabdomyolysis secondary to prolonged time down following overdose, present on admission, soft -CK trended down appropriately Diffuse myalgia likely secondary to opiate withdrawal, present on admission, ongoing -Imaging has not demonstrated any cause of the pain, it is likely due to withdrawal symptoms -She discharged home without any pain medications Exam Vital Signs (Last) Date Time Temp Pulse Resp B/P Pulse Ox O2 Delivery O2 Flow Rate FiO2 07/12/16 09:32 36.5 69 18 136/76 74 Room Air Test 07/09/16 08:33 07/09/16 09:50 07/09/16 11:40 07/09/16 16:45 Lactic Acid Level 2.6mmol/L (0.4-2.0) Magnesium Level 2.0mg/dL (1.6-2.6) Procalcitonin 0.13ng/mL (0.00-0.08) Urine Color Straw (YELLOW) Urine Appearance Clear (CLEAR,HAZY) Urine pH 8.0 (5.0-8.0) Urine Specific [place] 1.005 (1.003-1.035) Urine Protein Negativemg/dL (NEG,TRACE) Urine Glucose (UA) Negativemg/dL (NEGATIVE) Urine Ketones Negativemg/dL (NEGATIVE) Urine Occult Blood Large (NEGATIVE) Urine Nitrite Negative (NEGATIVE) Urine Bilirubin Negative (NEGATIVE) Urine Urobilinogen Normalmg/dL (NORMAL) Urine Leukocyte Esterase Negative (NEGATIVE) Urine RBC 0-2/hpf (0-2) Urine WBC 0-5/hpf (0-5) Urine Epithelial Cells Few/hpf (NONE-MOD) Urine Crystals None seen (NONE SEEN) Urine Bacteria None/hpf (NONE-FEW) Urine Hyaline Casts None/lpf (NONE) Urine Granular Casts None seen (NONE SEEN) Urine Waxy Casts None seen (NONE SEEN) Urine Red Blood Cell Casts None seen (NONE SEEN) Urine White Blood Cell Casts None seen (NONE SEEN) Urine Mucus None seen (None Seen) Urine Trichomonas None seen (NONE SEEN) Urine Yeast None (NONE SEEN) Urinalysis Comment None Urine Culture Reflexed Not indicated Troponin T 0.010ug/L (0.0-0.011) Urine Opiates Screen Positive Urine Methadone Screen Negative Urine Barbiturates Screen Negative Urine Amphetamines Screen Negative Urine Benzodiazepines Screen Negative Urine Cocaine Metabolite Screen Negative Urine Cannabinoids Screen Positive Test 07/10/16 05:30 07/10/16 08:53 07/10/16 08:58 07/10/16 19:15 HIV (1&2) Ag and Ab, 4th Generation Non reactive (Non Reactive) Urine HCG, Qualitative Negative (Negative) Erythrocyte Sedimentation Rate 50mm/hr (0-32) Vancomycin Level Trough 10.8mcg/mL Test 07/11/16 06:03 07/12/16 05:45 Total Creatine Kinase 169U/L (21-215) C-Reactive Protein 2.3mg/dL (0.0-0.5) White Blood Count 5.4th/mm3 (3.8-10.1) Red Blood Count 3.49mil/mm3 (3.90-5.20) Hemoglobin 10.9g/dL (12.0-15.6) Hematocrit 32.6% (35.0-46.0) Mean Corpuscular Volume 93.4fL (81-100) Mean Corpuscular Hemoglobin 31.2pg (27.0-35.0) Mean Corpuscular Hemoglobin Concent 33.4% (32.0-37.0) Red Cell Distribution Width 12.0% (12.3-15.4) Platelet Count 229bil/L (150-400) Neutrophils (%) (Auto) 64.9% (40-74) Lymphocytes (%) (Auto) 24.2% (14-46) Monocytes (%) (Auto) 7.0% (4-12) Eosinophils (%) (Auto) 3.1% (0-5) Basophils (%) (Auto) 0.2% (0-3) Sodium Level 143mEq/L (134-144) Potassium Level 3.9mEq/L (3.5-5.2) Chloride Level 110mEq/L (97-108) Carbon Dioxide Level 21mmol/L (18-29) Blood Urea Nitrogen 6mg/dL (6-20) Creatinine 0.52mg/dL (0.57-1.00) Estimat Glomerular Filtration Rate 204mL/min (>59) Glucose Level 93mg/dL (60-99) Calcium Level 7.8mg/dL (8.5-10.1) Total Bilirubin 0.2mg/dL (0.0-1.2) Aspartate Amino Transf (AST/SGOT) 21U/L (0-50) Alanine Aminotransferase (ALT/SGPT) 20U/L (0-32) Alkaline Phosphatase 60U/L (25-150) Total Protein 6.0g/dL (6.4-8.4) Albumin 3.0g/dL (3.4-5.0) Microbiology Results Microbiology VARUN CULTURE BLOOD Preliminary 07/11/16-0632 Organism 1 POSITIVE BLOOD CULTURE GRAM STAIN RESULT GRAM POSITIVE COCCI ?STAPH BC BOTTLE Isolated from Aerobic Bottle of Set Drawn DATE CALLED: 07/10/16 TIME CALLED: [id number] CALLED BY: FLAVIA FLOOR/DOCTOR: TRINH/ADRIANA VEE READ BACK YES TYPE OF DRAW PERIPHERAL DRAW TIME OF POSITIVITY 1043 STAPH SPECIES, PROBABLE STAPH AUREUS ID AND SENS PENDING ISOLATED FROM ONE OF SIX BOTTLES COLLECTED 2/ Discharge Medications Discharge Medications Fluoxetine (Fluoxetine) 10 Mg Capsule 10 MG PO DAILY Prescribed by: LUIS BRODY DO Mupirocin (Mupirocin Ointment) 22 Gm Oint...g. 1 APPLIC TOPICAL BID Prescribed by: LUIS BRODY DO Sulfamethoxazole/Trimeth 800-160 mg (Bactrim DS 800-160 mg) 1 Each Tablet 1 TABLET PO BID Prescribed by: LUIS BRODY, DO Additional med instructions We are discharging you home with 2 new medications We are sending you home with a course of antibiotics, which you will need to take for 7 days. We are also sending you home with the fluoxetine started by the psychiatrist. Please take this medication every day Followup Plan Disposition: Home Discharge Diet: No restrictions Discharge Activity: No restrictions Patient Instructions We are sending you home with a 7 day course of antibiotics, please take the entire course. We are also discharging you home with fluoxetine which was prescribed by the psychiatrist, please take this medication daily. You have an appointment at [facility] with Dr. Barnett on July 15 at 3:30 PM If you have any thoughts of harming yourself, please call 911 or go directly to the ER. Follow-up Provider: Olinda Barnett MD Follow-up with PCP in: Other (07/15/16) Time spent 32 minutes Attending Statement The patient was seen and examined together with Dr. Brody on 07/12/2016 and I agree with the history, exam and plan as outlined in the note above. copies to: Olinda Barnett MD, Tara L DO Jul 12, 2016 17:59 Ruperto Young MD Jul 13, 2016 10:34
== END 2016-07-12 12:06 | disposition home or self-care (01) | DRG 918 ==
LOC: SED 08:03 → MPC 10:16
PROVIDERS: ADMIT Family Medicine; ATTEND Family Medicine
PROC: 3E0234Z Introduction of Serum, Toxoid and Vaccine into Muscle, Percutaneous Approach (ICD-10-PCS; principal; 2016-07-09)
DX: T40.1X2A Poisoning by heroin, intentional self-harm, initial encounter (principal); M62.82 Rhabdomyolysis; F11.23 Opioid dependence with withdrawal; F33.2 Major depressive disorder, recurrent severe without psychotic features; Y92.9 Unspecified place or not applicable; L01.00 Impetigo, unspecified; F17.210 Nicotine dependence, cigarettes, uncomplicated; F42.4 Excoriation (skin-picking) disorder; L89.152 Pressure ulcer of sacral region, stage 2; L89.322 Pressure ulcer of left buttock, stage 2; L89.312 Pressure ulcer of right buttock, stage 2; Z23 Encounter for immunization